=== PATIENT | male | born 1945 | race Caucasian/White ===

== ENCOUNTER 2023-11-05 09:24 | Outpatient (OUT) | payer MEDICARE, SELFPAY ==
[2023-11-05 10:05] LABS: Basophils Percent Auto 0.2 % (0.2-2.0); Eosinophils Absolute Auto 0.3 10^3/uL (0.0-0.7); Eosinophils Percent Auto 4.5 % (0.9-7.0); Hematocrit 42.8 % (42.0-54.0); Hemoglobin 13.6 g/dL (14.0-18.0); Immature Granulocytes Abs Auto 0.01 10^3/uL (0.00-0.03); Immature Granulocytes Pct Auto 0.2 % (0.0-0.5); Lymphocytes Percent Auto 29.7 % (20.5-60.0); Mean Corpuscular HGB Conc 31.8 g/dL (29.9-35.2); Mean Corpuscular Hemoglobin 27.4 pg (25.9-34.0); Mean Corpuscular Volume 86.3 fL (80.0-94.0); Mean Platelet Volume 11.1 fL (9.5-13.5); Monocytes Absolute Auto 0.4 10^3/uL (0.3-0.8); Neutrophils Percent Auto 59.4 % (43.0-75.0); Platelet Count 202 10^3/uL (150-450); Red Blood Count 4.96 10^6/uL (4.70-6.10); Red Cell Distribution Width 14.5 % (11.0-15.0); White Blood Count 6.7 10^3/uL (4.0-11.0)
[2023-11-06 11:12] LABS: PSA, Free 0.89 ng/mL; Prostate Specific Ag 3.6 ng/mL (0.0-4.0)
== END 2023-11-05 09:25 | disposition home or self-care (01) ==
LOC: LAB 09:29
PROVIDERS: PCP Internal Medicine; Visit Provider Internal Medicine
DX: R97.20 Elevated prostate specific antigen [PSA] (principal); D64.9 Anemia, unspecified
CPT/HCPCS: 36415; 84153; 84154; 85025

== ENCOUNTER 2024-09-11 11:31 | Outpatient (OUT) | payer MEDICARE, SELFPAY ==
--- OUTSIDE RECORDS SUMMARY | 2024-09-11 11:37 | XMS_ITS | Clinical Summary ---
Author Organization [facility] Address [address] 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 Name Role Phone Unavailable Primary Care Provider Unavailabl e Encounters Date Type Department Care Team Description 07/29/2024 Lab Requisition [facility] [address] [place] [phone] 07/29/2024 Lab Requisition [facility] [address] [place] [phone] Ravinder Orellana MD Basal cell carcinoma of skin of left lower eyelid, including canthus from Last 3 Months Social History Tobacco Use Types Packs/Day Years Used Date Smoking Tobacco: Never Assessed Sex and Gender Information Value Date Recorded Sex Assigned at Not on file Legal Sex Male 10:07 AM EDT Gender Identity Not on file Sexual Orientation Not on file Plan of Treatment Health Maintenance Due Date Last Done Comments Lipid Panel 1945 Medicare Annual Wellness Vis it (AWV) 1945 Hepatitis C Screening 12/03/1963 DTaP/Tdap/Td Vaccines (1 - Tdap) 12/03/1967 Pneumococcal Vaccine (1 of 1 - PCV) 12/03/1995 Zoster Vaccines (1 of 2) 12/03/1995 RSV High Risk: (Elderly (60+ ) or Population) (1 - 1-dose 75+ series) 2020 COVID-19 Vaccine ( - 2023-2 5 season) 2023 Influenza Vaccine (#1) 2024 HIB Vaccines Aged Out No longer eligi ble based on patient's age to complete this topic HPV Vaccines Aged Out No longer eligi ble based on patient's age to complete this topic Hepatitis A Vaccines Aged Out No long er eligible based on patient's age to complete this topic Hepatitis B Vaccines Aged Out No long er eligible based on patient's age to complete this topic IPV Vaccines Aged Out No longer eligi ble based on patient's age to complete this topic Meningococcal Vaccine Aged Out No melany acacia eligible based on patient's age to complete this topic Rotavirus Vaccines Aged Out No longer eligible based on patient's age to complete this topic Procedures Procedure Name Priority Date/Time Associated Diagnosis Comments SURGICAL PATHOLOGY EXAM Routine 07/25/2024 12:36 PM EDT Basal cell carcinoma of skin of left lower eyelid, including canthus from Last 3 Months Results * Surgical Pathology Exam (07/25/2024 12:36 PM EDT) Case Report Surgical Pathology Case: [id number] Authorizing Provider: Ravinder Orellana MD Collected: 07/25/2024 1236 Ordering Location: [facility] Received: 07/29/2024 1014 Center Pathologist: Kelly Wallace MD Specimen: EYELID LEFT, LEFT LOWER LID SITE OF BASAL CELL CARCINOMA INCISION 08/11/2024 3:43 PM EDT [facility] FINAL DIAGNOSIS A. Eye, left lower eyelid, excision: --Conjunctiva with mixed acute, chronic and granulomatous inflammation including lipogranulomas compatible with chalazion, see comment Comment: Multiple deeper levels and immunostains including AE1/AE3 and MOC31 were reviewed. Correlated with the provided clinical history, no residual or recurrent basal cell carcinoma is identified. Results of AFB and GMS stains will be reported separately. 08/11/2024 3:43 PM EDT [facility] at 0945 EDT By the signature on this report, the individual or group listed as making the Final Interpretation/Jud gnosis certifies that they have reviewed this case. 08/11/2024 3:43 PM EDT [facility] Addendum AFB and GMS stains are negative for microorganisms. If infection is a clinical concern, correlation with microbiology cultures is recommended. 08/11/2024 3:43 PM EDT [facility] Addendum electronically signed by Kelly Wallace MD on 08/11/2024 at 1543 EDT Clinical History [id number] 08/11/2024 3:43 PM EDT [facility] Gross Description Received in formalin, labeled with the patient's name and hospital number and left lower lid basal cell carcinoma excision , is a kent soft tissue fragment measuring 0.6 x 0.3 x 0.5 cm. The resection margin is inked. The specimen is bisected and entirely submitted in one cassette. SLO/LMP 08/11/2024 3:43 PM EDT [facility] Disclaimer One or more of the reagents used to perform assays on this specimen MAY have contained components considered to be analyte specific reagents (ASR's). ASR's have not been cleared or approved by the U.S. Food and Drug Administration. These assays were developed and their performance characteristics determined by the Department of Pathology at [facility]. The FDA does not require this test to go through premarket FDA review. This test is used for clinical purposes. It should not be regarded as investigational or for research. This laboratory is certified under the Clinical Laboratory Improvement Amendments (CLIA) as qualified to perform high complexity clinical laboratory testing. The assays were performed with appropriate positive and negative controls which stained appropriately. 08/11/2024 3:43 PM EDT [facility] Tissue (EYELID LEFT) 07/25/2024 12:36 PM EDT 07/29/2024 10:14 AM EDT Ravinder Orellana MD LAB PATHOLOGY ORDERABLES Edite d Result - Final Performing Organization Address City/State/[facility] Co de Phone Number [facility] [id number] [place] [phone] from Last 3 Months Insurance MEDICARE [employer] MEDICARE [employer]
--- OUTSIDE RECORDS SUMMARY | 2024-09-11 11:37 | XMS_ITS | Clinical Summary ---
Author Organization [facility] Address [address] [place] [address] Care Team Providers Care Magazine Supervisor Name Role Phone Unavailable Primary Care Provider Unavailabl e Social History Tobacco Use Types Packs/Day Years Used Date Smoking Tobacco: Never Assessed Sex and Gender Information Value Date Recorded Sex Assigned at Not on file Legal Sex Male 10:02 PM EDT Gender Identity Not on file Sexual Orientation Not on file Last Filed Vital Signs Vital Sign Reading Time Taken Comments Blood Pressure 127/74 04/23/2019 12:00 PM EDT Pulse - - Temperature - - Respiratory Rate - - Oxygen Saturation - - Inhaled Oxygen Concentration - - Weight 68 kg (150 lb) 03/15/2022 12:00 PM EST Height 165.1 cm (5' 5 ) 03/15/2022 12:00 PM EST Body Mass Index 24.96 03/15/2022 12:00 PM EST Plan of Treatment Not on file [place] [phone] Advance Directives Documents on File Type Date Recorded 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
--- OUTSIDE RECORDS SUMMARY | 2024-09-11 11:37 | XMS_ITS | Encounter Summary ---
Author Organization [facility] Address [address] 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 Name Role Phone Unavailable Primary Care Provider Unavailabl e Encounter Details Date Type Department Care Team (Late st Contact Info) Description 07/29/2024 Lab Requisition [facility] [address] [place] [phone] Ravinder Orellana MD [address] [id number] Basal cell carcinoma of skin of left lower eyelid, including canthus Social History Tobacco Use Types Packs/Day Years Used Date Smoking Tobacco: Never Assessed Sex and Gender Information Value Date Recorded Sex Assigned at Not on file Legal Sex Male 10:07 AM EDT Gender Identity Not on file Sexual Orientation Not on file documented as of this encounter Plan of Treatment Not on file documented as of this encounter Procedures Procedure Name Priority Date/Time Associated Diagnosis Comments SURGICAL PATHOLOGY EXAM Routine 07/25/2024 12:36 PM EDT Basal cell carcinoma of skin of left lower eyelid, including canthus documented in this encounter Results * Surgical Pathology Exam (07/25/2024 12:36 PM EDT) Case Report Surgical Pathology Case: [id number] Authorizing Provider: Ravinder Orellana MD Collected: 07/25/2024 1236 Ordering Location: [facility] Received: 07/29/2024 1014 Center Pathologist: Kelly Wallace MD Specimen: EYELID LEFT, LEFT LOWER LID SITE OF BASAL CELL CARCINOMA INCISION 08/11/2024 3:43 PM EDT [facility] FINAL DIAGNOSIS A. Eye, left [...] be reported separately. 08/11/2024 3:43 PM EDT [facility] at 0945 EDT By the signature on this report, the individual or group listed as making the Final Interpretation/Jud gnosis certifies that they have reviewed this case. 08/11/2024 3:43 PM EDT [facility] Addendum AFB and GMS stains are negative for microorganisms. If infection is a clinical concern, correlation with microbiology cultures is recommended. 08/11/2024 3:43 PM EDT [facility] Addendum electronically signed by Kelly Wallace MD on 08/11/2024 at 1543 EDT Clinical History [id number] 08/11/2024 3:43 PM EDT [facility] Gross Description Received in formalin, labeled with the patient's name and hospital number and left lower lid basal cell carcinoma excision , is a kent soft tissue fragment measuring 0.6 x 0.3 x 0.5 cm. The resection margin is inked. The specimen is bisected and entirely submitted in one cassette. SLO/LMP 08/11/2024 3:43 PM EDT [facility] Disclaimer One or more of the reagents used to perform assays on this specimen MAY have contained components considered to be analyte specific reagents (ASR's). ASR's have not been cleared or approved by the U.S. Food and Drug Administration. These assays were developed and their performance characteristics determined by the Department of Pathology at [facility]. The FDA does not require this [...] which stained appropriately. 08/11/2024 3:43 PM EDT [facility] Tissue (EYELID LEFT) 07/25/2024 12:36 PM EDT 07/29/2024 10:14 AM EDT us Ravinder Orellana MD LAB PATHOLOGY ORDERABLES Edite d Result - Final [facility] [address] [id number] documented in this encounter Visit Diagnoses Diagnosis Basal cell carcinoma of skin of left lower eyelid, including canthus documented in this encounter
--- OUTSIDE RECORDS SUMMARY | 2024-09-11 11:37 | XMS_ITS | Encounter Summary ---
Author Organization [facility] Address [address] 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 Diesel Locomotive Name Role Phone Unavailable Primary Care Provider Unavailabl e Encounter Details Date Type Department Care Team (Late st Contact Info) Description 07/29/2024 Lab Requisition [facility] [address] [place] [phone] Social History Tobacco Use Types Packs/Day Years Used Date Smoking Tobacco: Never Assessed Sex and Gender Information Value Date Recorded Sex Assigned at Not on file Legal Sex Male 10:07 AM EDT Gender Identity Not on file Sexual Orientation Not on file documented as of this encounter Plan of Treatment Not on file documented as of this encounter Visit Diagnoses Not on filedocumented in this encounter
--- OUTSIDE RECORDS SUMMARY | 2024-09-11 11:37 | XMS_ITS | Clinical Summary ---
Author Organization [facility] Address [address] [place] [address] Care Team Providers Care Office Technology Instructor Name Role Phone Unavailable Primary Care Provider Unavailabl e Allergies No known active allergies Medications OMEPRAZOLE (PRILOSEC ORAL) Take by mouth. 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 Social History Tobacco Use Types Packs/Day Years Used Date Smoking Tobacco: Never Alcohol Use Standard Drinks/Week Comments Yes 0 (1 standard drink = 0.6 oz pur e alcohol) Sex and Gender Information Value Date Recorded Sex Assigned at Not on file Legal Sex Male 10:07 AM EDT Gender Identity Not on file Sexual Orientation Not on file Plan of Treatment Health Maintenance Due Date Last Done Comments Anxiety Screening 12/03/1963 Depression Screening 12/03/1963 Hepatitis C Screening 12/03/1963 DTaP,Tdap,Td Vaccine (1 - Tdap) 1964 Diabetes Screening 1990 Pneumococcal Vaccine: 50+ (1 of 1 - PCV) 12/03/1995 Shingrix Vaccine (1 of 2) 12/03/1995 RSV Vaccine (1 - 1-dose 75+ series) 2020 Covid-19 Vaccine (1 - season) 2023 Advance Directive Discussion 02/13/2024 Influenza Vaccine (#1) 2024 Insurance [facility]
[2024-09-11 11:50] LABS: Hematocrit 42.0 % (42.0-54.0); Hemoglobin 13.5 g/dL (14.0-18.0); Immature Granulocytes Abs Auto 0.02 10^3/uL (0.00-0.03); Immature Granulocytes Pct Auto 0.2 % (0.0-0.5); Lymphocytes Absolute Auto 2.0 10^3/uL (1.2-3.8); Mean Corpuscular HGB Conc 32.1 g/dL (29.9-35.2); Mean Corpuscular Hemoglobin 27.7 pg (25.9-34.0); Mean Corpuscular Volume 86.2 fL (80.0-94.0); Platelet Count 194 10^3/uL (150-450); Red Blood Count 4.87 10^6/uL (4.70-6.10); White Blood Count 8.1 10^3/uL (4.0-11.0)
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
[2024-09-11 12:14] LABS: Alanine Aminotransferase 30 U/L (16-63); Albumin Globulin Ratio 1.2; Albumin Level 3.5 g/dL (3.4-5.0); Alkaline Phosphatase 54 U/L (46-116); Anion Gap 9.9; Aspartate Amino Transferase 22 U/L (15-37); Blood Urea Nitrogen 20.0 mg/dL (7.0-18.0); Calcium 9.0 mg/dL (8.5-10.1); Carbon Dioxide 30.6 mmol/L (21.0-32.0); Chloride 103 mmol/L (98-107); Estimated GFR (African America >60 (>=60 mL/min/1.73m^2); Estimated GFR (Non-African Ame >60 (>=60 mL/min/1.73m^2); Globulin 3.0 g/dL; Glucose 101 mg/dL (74-106); Potassium 4.5 mmol/L (3.5-5.1); Sodium 139 mmol/L (136-145); Total Protein 6.5 g/dL (6.4-8.2)
== END 2024-09-11 11:32 | disposition home or self-care (01) ==
LOC: LAB 11:35
PROVIDERS: PCP Internal Medicine; Visit Provider Internal Medicine
DX: Z12.5 Encounter for screening for malignant neoplasm of prostate (principal); N18.2 Chronic kidney disease, stage 2 (mild); R53.83 Other fatigue; D64.9 Anemia, unspecified
CPT/HCPCS: 36415; 80053; 85025; G0103

== ENCOUNTER 2024-12-23 09:03 | Outpatient (OUT) | payer MEDICARE, SELFPAY ==
--- OUTSIDE RECORDS SUMMARY | 2024-12-23 09:09 | XMS_ITS | Clinical Summary ---
Author Organization [facility] Address [address] [place], [place] [id number] Care Team Providers Care Lunchroom Aide Name Role Phone Unavailable Primary Care Provider Unavailabl e Allergies No known active allergies Medications MedicationSigDispense QuantityRefillsLast FilledStart DateEnd DateStatus OMEPRAZOLE (PRILOSEC ORAL) Take by mouth.Active Active Problems ProblemNoted DateDiagnosed DateAchilles rupture, left09/01/2013 Social History Tobacco UseTypesPacks/DayYears UsedDateSmoking Tobacco: NeverAlcohol UseStandard Drinks/WeekCommentsYes0 (1 standard drink = 0.6 oz pure alcohol)Sex and Gender InformationValueDate RecordedSex Assigned at BirthNot on fileLegal SexMale 06/17/2013 10:07 AM EDTGender IdentityNot on fileSexual OrientationNot on file Plan of Treatment Health MaintenanceDue DateLast DoneCommentsAnxiety Dswggnabt75/21/1964Depression Hqqifjwuq16/21/1964DTaP,Tdap,Td Vaccine (1 - Tdap)1964Diabetes Screening 1990Pneumococcal Vaccine: 50+ (1 of 1 - PCV)12/03/1995Shingrix Vaccine (1 of 2)12/03/1995RSV Vaccine (1 - 1-dose 75+ series)2020dvance Directive Hakpkhmzew92/01/2025ovid-19 Vaccine (1 - 2024-26 season)2024Influenza Vaccine (#1)2024 Insurance
--- OUTSIDE RECORDS SUMMARY | 2024-12-23 09:09 | XMS_ITS | Clinical Summary ---
Author Organization [facility] Address [address] [place] [address] Care Team Providers Care Nuclear Licensing Engineer Name Role Phone Unavailable Primary Care Provider Unavailabl e Social History Tobacco UseTypesPacks/DayYears UsedDateSmoking Tobacco: Never AssessedSex and Gender InformationValueDate RecordedSex Assigned at BirthNot on fileLegal Sex Male04/26/2022 10:02 PM EDTGender IdentityNot on fileSexual OrientationNot on file Last Filed Vital Signs Vital SignReadingTime TakenCommentsBlood Przavydr215/7404/23/2019 12:00 PM EDT Pulse--Temperature--Respiratory Rate--Oxygen Saturation--Inhaled Oxygen Concentration--Dgqcht86 kg (150 lb)03/15/2022 12:00 PM KKGAnnpew089.1 cm (5' 5 ) 03/15/2022 12:00 PM ESTBody Mass Index24.9603/15/2022 12:00 PM EST Plan of [place] [phone] Advance Directives TypeDate RecordedPatient RepresentativeExplanationAdvance Directives and Living Will Power Of AttorneyAdvance Directives and Living Will Living Will
--- OUTSIDE RECORDS SUMMARY | 2024-12-23 09:09 | XMS_ITS | Clinical Summary ---
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 Name Role Phone Unavailable Primary Care Provider Unavailabl e Social History Tobacco UseTypesPacks/DayYears UsedDateSmoking Tobacco: Never AssessedSex and Gender InformationValueDate RecordedSex Assigned at BirthNot on fileLegal Sex Male07/29/2024 10:07 AM EDTGender IdentityNot on fileSexual OrientationNot on file Plan of Treatment Health MaintenanceDue DateLast DoneCommentsLipid Panel1945Medicare Annual Wellness Visit (AWV)1945Hepatitis C Oozqlrqvy09/21/1964DTaP/Tdap/Td Vaccines (1 - Tdap)12/03/1967Pneumococcal Vaccine (1 of 1 - PCV)12/03/1995Zoster Vaccines (1 of 2)12/03/1995RSV High Risk: (Elderly (60+) or Population) (1 - 1-dose 75+ series)2020Influenza Vaccine (#1)2024OVID-19 Vaccine (1 - season)2024HIB VaccinesAged OutNo longer eligible based on patient's age to complete this topicHPV VaccinesAged OutNo longer eligible based on patient's age to complete this topicHepatitis A VaccinesAged OutNo longer eligible based on patient's age to complete this topicHepatitis B VaccinesAged OutNo longer eligible based on patient's age to complete this topic IPV VaccinesAged OutNo longer eligible based on patient's age to complete this topicMeningococcal VaccineAged OutNo longer eligible based on patient's age to complete this topicRotavirus VaccinesAged OutNo longer eligible based on patient's age to complete this topic Insurance * Guarantor: Katy Castro TypeRelation to PatientDate of BirthPhone Billing AddressPersonal/VnuhimBkop[address] [place] [phone] * Guarantor: Katy Castro TypeRelation to PatientDate of BirthPhone Billing AddressPersonal/GplkjjAfft[address] [place] [phone]
[2024-12-23 09:35] LABS: Hematocrit 43.1 % (42.0-54.0); Hemoglobin 13.5 g/dL (14.0-18.0); Immature Granulocytes Abs Auto 0.03 10^3/uL (0.00-0.03); Immature Granulocytes Pct Auto 0.3 % (0.0-0.5); Lymphocytes Absolute Auto 1.9 10^3/uL (1.2-3.8); Mean Corpuscular HGB Conc 31.3 g/dL (29.9-35.2); Mean Corpuscular Hemoglobin 26.9 pg (25.9-34.0); Mean Corpuscular Volume 86.0 fL (80.0-94.0); Platelet Count 254 10^3/uL (150-450); Red Blood Count 5.01 10^6/uL (4.70-6.10); White Blood Count 9.8 10^3/uL (4.0-11.0)
[2024-12-23 11:19] LABS: Iron 59.0 ug/dL (65.0-175.0); Percent Iron Saturation 22.8 %; Total Iron Binding Capacity 259.0 ug/dL (250.0-450.0)
[2024-12-23 11:40] LABS: Ferritin 150.0 ng/mL (26.0-388.0); Folate 20.00 ng/mL (8.60-58.90)
[2024-12-24 05:07] LABS: Vitamin B12 1110 pg/mL (232-1245)
== END 2024-12-23 09:04 | disposition home or self-care (01) ==
LOC: LAB 09:06
PROVIDERS: PCP Internal Medicine; Visit Provider Internal Medicine
DX: D64.9 Anemia, unspecified (principal)
CPT/HCPCS: 36415; 82607; 82728; 82746; 83540; 83550; 85025